=== PATIENT | female | born 2000 | race Hispanic/Latino ===

== ENCOUNTER 2021-07-26 20:13 | Emergency (ER) | payer SELFPAY ==
[~2021-07-26] VITALS: Ht 162.6 cm; Wt 97.5 kg
[2021-07-26] MEDS ORDERED: KETOROLAC TROMETHAMINE 30 MG/ML VIAL ONE (21:10)
[2021-07-26] MEDS ORDERED: KETOROLAC TROMETHAMINE 60 MG/2 ML VIAL IM ONE (21:15)
[2021-07-26] MEDS ORDERED: CEFTRIAXONE 1 GM in SODIUM CHLORIDE 0.9% 50ML 50 ML IV ONE (21:15)
[2021-07-26] MEDS ORDERED: IBUPROFEN600 MG PO (21:16)
[2021-07-26] MEDS ORDERED: CEPHALEXIN500 MG PO (21:16)
[2021-07-26] MEDS ORDERED: CEFTRIAXONE 1 GM VIAL ONE (21:37)
== END 2021-07-26 22:40 | disposition home or self-care (01) ==
LOC: FSED 20:17
DX: N39.0 Urinary tract infection, site not specified (principal); R10.9 Unspecified abdominal pain
CPT/HCPCS: 81003; 81025; 99282; J0696; J1885

== ENCOUNTER 2023-12-28 23:03 | Emergency (ER) | payer OTHER ==
[~2023-12-28] VITALS: Ht 160 cm; Wt 106.1 kg
[~2023-12-28 23:03] MED LIST: CEPHALEXIN500 MG PO; IBUPROFEN600 MG PO
[2023-12-29] MEDS ORDERED: IBUPROFEN200 MG PO (01:15)
[2023-12-29] MEDS ORDERED: DIFLUCAN100 MG PO (01:15)
[2023-12-29] MEDS ORDERED: CEFDINIR300 MG PO (01:15)
[2023-12-29] MEDS: CEFTRIAXONE 1 GM VIAL IM ONE (01:31)
[2023-12-29] MEDS: IBUPROFEN 200 MG TAB PO ONE (01:32)
[2023-12-29] MEDS ORDERED: IBUPROFEN 600 MG TAB ONE (01:32)
[2023-12-29] MEDS ORDERED: ACETAMINOPHEN 325 MG TAB ONE (01:32)
[2023-12-29] MEDS: ACETAMINOPHEN 325 MG TAB PO ONE (01:33)
[2023-12-29] MEDS ORDERED: CEFTRIAXONE 1 GM VIAL ONE (01:33)
[2023-12-29 01:43] VITALS: O2SAT 95
== END 2023-12-29 01:45 | disposition home or self-care (01) ==
LOC: FSED 23:10
DX: R10.2 Pelvic and perineal pain (principal); N89.8 Other specified noninflammatory disorders of vagina; N39.0 Urinary tract infection, site not specified
CPT/HCPCS: 74176; 99283; J0696